=== PATIENT | female | born 1990 | race Asian ===

== ENCOUNTER 2017-10-13 05:32 | Day surgery (SDC) | END 2017-10-13 10:00 | disposition home or self-care (01) ==

== ENCOUNTER 2017-10-18 07:44 | Emergency (ER) | END 2017-10-18 11:41 | disposition left against medical advice (07) ==

== ENCOUNTER 2017-10-18 23:07 | Inpatient (IN) | END 2017-10-21 14:19 | disposition home or self-care (01) | DRG 419 ==